=== PATIENT | female | born 1965 | race Caucasian/White ===

== ENCOUNTER 2020-01-04 09:59 | Emergency (ER) | payer BC ==
[2020-01-04] MEDS ORDERED: Ketorolac 30 MG/ML SDV IM ONE (11:22)
--- NOTE | 2020-01-04 11:40 | EDM.PDOC ---
ED HPI GENERAL MEDICAL PROBLEM - General Chief Complaint: General Stated Complaint: RIGHT ELBOW PAIN Time Seen by Provider: 01/04/20 10:20 Source of Information: Reports: Patient History Limitations: Reports: No Limitations - History of Present Illness INITIAL COMMENTS - FREE TEXT/NARRATIVE: 54-year-old female presents to the emergency room with 24-hour onset of right arm pain and elbow pain. She reports that the symptoms came on fairly abruptly she notices pain and tenderness overlying the lateral elbow. She denies any swelling to the elbow. She has discomfort with any motion or lifting with the right arm. She complains of some numbness and tingling in the index and long finger. She denies any neck pain she denies significant shoulder pain. She denies any injury or fall. She is right-hand dominant. She runs a daycare. She says the pain became severe enough today that she presents to the emergency room. She's not been experiencing any visual changes speech changes or balance or ambulation difficulty. Onset Date: 01/03/20 Duration: Hour(s):, Constant Location: Reports: Upper Extremity, Right Quality: Reports: Ache Severity: Severe Improves with: Reports: None Worsens with: Reports: Movement Associated Symptoms: Reports: Weakness (right arm) Right Elbow Pain Score (Numeric/FACES): 8 - Related Data Allergies Allergy/AdvReac Type Severity Reaction Status Date / Time No Known Drug Allergies Allergy Cannot Verified 01/04/20 10:15 Remember Home Meds: Home Meds . 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 Musculoskeletal History: Reports: Fracture, Other (See Below) Other Musculoskeletal History: was told 10 years ago had start of arthritis Neurological History: Reports: None Psychiatric History: Reports: None Endocrine/Metabolic History: Reports: Obesity/BMI 30+ Hematologic History: Reports: Anemia Immunologic History: Reports: None Oncologic (Cancer) History: Reports: None Dermatologic History: Reports: None - Infectious Disease History Infectious Disease History: Reports: Chicken Pox - Past Surgical History HEENT Surgical History: Reports: None Cardiovascular Surgical History: Reports: None Respiratory Surgical History: Reports: None GI Surgical History: Reports: Cholecystectomy Female Surgical History: Reports: Section Endocrine Surgical History: Reports: None Neurological Surgical History: Reports: None Musculoskeletal Surgical History: Reports: None Dermatological Surgical History: Reports: None Social & Family History - Tobacco Use Smoking Status *Q: Never Smoker - Caffeine Use Caffeine Use: Reports: Coffee, Tea - Recreational Drug Use Recreational Drug Use: No ED ROS GENERAL - Review of Systems Review Of Systems: Comprehensive ROS is negative, except as noted in HPI. ED EXAM, GENERAL - Physical Exam Exam: See Below Exam Limited By: No Limitations General Appearance: Alert, WD/WN, No Apparent Distress Ears: Hearing Grossly Normal Nose: Normal Inspection Throat/Mouth: Normal Lips, Normal Voice, No Airway Compromise Head: Atraumatic, Normocephalic Neck: Normal Inspection, Supple. No: Tender Midline Respiratory/Chest: No Respiratory Distress Extremities: Normal Inspection, Arm Pain, Other (Patient is tender over the lateral epicondylitis she has recent increased pain and discomfort over the lateral elbow with resisted wrist extension finger extension and pronation. She has full finger wrist forearm elbow and shoulder range of motion. She has no pain with gentle shoulder motion at the shoulder but describes pain over the lateral elbow with shoulder motion. 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 There is no obvious swelling of any of the joints of the fingers wrist elbow or shoulder.). No: Joint Swelling Neurological: Alert, Oriented, CN II-XII Intact, Normal Cognition, Normal Gait Psychiatric: Normal Affect, Normal Mood Skin Exam: Warm, Dry, Intact, Normal Color, No Rash Lymphatic: No Adenopathy Course - Vital Signs Last Recorded V/S: Last Vital Signs Temp 98.0 F 01/04/20 10:04 Pulse 66 01/04/20 10:04 Resp 18 01/04/20 10:04 BP 156/86 H 01/04/20 10:04 Pulse Ox 98 01/04/20 10:04 - Orders/Labs/Meds Orders: Active Orders 24 hr Category Date Time Status Cervical Spine 2V or 3V [CR] Stat Exams 01/04/20 10:53 Ordered Elbow 2V Rt [CR] Stat Exams 01/04/20 10:21 Ordered Humerus Rt [CR] Stat Exams 01/04/20 10:53 Ordered Meds: Medications Discontinued Medications Generic Name Dose Route Start Last Admin Trade Name Freq PRN Reason Stop Dose Admin Ketorolac Tromethamine 30 mg 01/04/20 11:22 01/04/20 11:30 Toradol IM 01/04/20 11:23 30 mg ONETIME ONE Administration - Radiology Interpretation Free Text/Narrative:: X-rays right elbow: No acute fracture or dislocation. No joint effusion. Joints are well preserved. Impression: Negative examination X-rays cervical spine: Straightening of the normal cervical lordosis. For vertebral bodies are normal alignment. AP view demonstrates some mild facet joint arthropathy at multiple levels most prominent on the left at C5-6. No acute fracture or compression deformity Impression: No acute findings, other than findings are described above. X-rays right humerus: No acute fracture or osseous lesion Impression: Negative examination Departure - Departure Time of Disposition: 11:37 Disposition: Home, Self-Care 01 Condition: Good Clinical Impression: Lateral epicondylitis, right elbow, Cervical radiculopathy - Discharge Information Instructions: Cervical Radiculopathy, Tennis Elbow Forms: ED Department Discharge Sepsis Event Note (ED) - Evaluation Sepsis Screening Result: No Definite Risk - Focused Exam Vital Signs: Vital Signs Temp Pulse Resp BP Pulse Ox 01/04/20 10:04 98.0 F 66 18 156/86 H 98 - My Orders Last 24 Hours: My Active Orders 01/04/20 10:21 Elbow 2V Rt [CR] Stat 01/04/20 10:53 Cervical Spine 2V or 3V [CR] Stat Humerus Rt [CR] Stat - Assessment/Plan Last 24 Hours: My Active Orders 01/04/20 10:21 Elbow 2V Rt [CR] Stat 01/04/20 10:53 Cervical Spine 2V or 3V [CR] Stat Humerus Rt [CR] Stat Assessment:: 1. Right lateral epicondylitis 2. Right arm pain possible cervical radiculopathy Plan: 1. Toradol 10 mg 1 by mouth 8 hours when necessary. 2. Tennis elbow strap for lateral epicondylitis she may pick this up at your pharmacist. 3. Sling for comfort. 4. If not significantly better by next week I would follow-up with your primary care. Your symptoms tend to be more severe than somewhat experiencing just lateral epicondylitis alone therefore this may be a component of cervical radiculopathy and would proceed with an MRI of her cervical spine if not better with the injection and brace.
--- NOTE | 2020-01-04 11:55 | CR ---
[id number] RAD/RAD Humerus Right 2V Exam: RAD Humerus Right 2V Indication:ARM PAIN. Comparison: No prior imaging for comparison. Discussion: No acute fracture or osseous lesion. Impression: Negative examination. Humberto Sanderson MD 01/04/20 1154 Thank you for allowing us to participate in the care of your patient.
--- NOTE | 2020-01-04 11:55 | CR ---
[id number] RAD/RAD Elbow Right 2V Exam: RAD Elbow Right 2V Indication:PAIN. Comparison: No prior imaging for comparison. Discussion: No acute fracture or dislocation. No joint effusion. Joint spaces are well-preserved. Impression: Negative examination. Humberto Sanderson MD 01/04/20 [id number] Thank you for allowing us to participate in the care of your patient.
--- NOTE | 2020-01-04 11:58 | CR ---
[id number] RAD/RAD Cervical Spine 2-3V Exam: RAD Cervical Spine 2-3V Indication:ARM PAIN. Comparison: No prior imaging for comparison. Discussion: Straightening of the normal cervical lordosis. Vertebral bodies are normal alignment. AP view demonstrates mild facet joint arthropathy at multiple levels most prominent on the left at C5-6. No acute fracture or compression deformity. Impression: No acute findings. Other findings are described above. Humberto Sanderson MD 01/04/20 [id number] Thank you for allowing us to participate in the care of your patient.
== END 2020-01-04 11:40 | disposition home or self-care (01) ==
LOC: KA.ED 09:59
DX: M77.11 Lateral epicondylitis, right elbow (principal); M54.12 Radiculopathy, cervical region; E66.9 Obesity, unspecified; Z68.31 Body mass index [BMI] 31.0-31.9, adult; Z90.89 Acquired absence of other organs
CPT/HCPCS: 72040; 73060-RT; 73070-RT; 96372; 99283-25; 99284; J1885